=== PATIENT | female | born 1975 | race Caucasian/White ===

== ENCOUNTER 2017-03-29 13:07 | Day surgery (SDC) | END 2017-03-29 16:30 | disposition home or self-care (01) | DX: R22.32 Localized swelling, mass and lump, left upper limb (principal); D48.1 Neoplasm of uncertain behavior of connective and other soft tissue | CPT/HCPCS: 26113; 88307; J0690; J1100; J2250; J2405; J2765; J3010; Z7512; Z7610 ==

== ENCOUNTER 2017-09-30 23:40 | Emergency (ER) | END 2017-10-01 02:10 | disposition home or self-care (01) ==